=== PATIENT | female | born 1990 | race Caucasian/White ===

== ENCOUNTER 2018-12-14 16:01 | Inpatient (IN) | payer OTHER ==
[~2018-12-14] VITALS: Ht 165.1 cm; Wt 65.8 kg
[2018-12-14] MEDS ORDERED: PREN1TAB80 PO (16:26)
[2018-12-14 16:41] VITALS: BP 120/73
[2018-12-14] MEDS: RINGERS SOLUTION,LACTATED 1,000 ML IV SCH ×2 (18:00→21:13)
[2018-12-14] MEDS ORDERED: OXYTOCIN 30 UNITS/LACT RINGERS 500 ML IV PRN (19:06)
[2018-12-14] MEDS ORDERED: RINGERS SOLUTION,LACTATED 1,000 ML IV ONE (19:06)
[2018-12-14] MEDS ORDERED: OXYTOCIN 30 UNITS/LACT RINGERS 500 ML IV ONE (19:06)
[2018-12-14] MEDS ORDERED: RINGERS SOLUTION,LACTATED 1,000 ML IV SCH (19:06)
[2018-12-14] MEDS ORDERED: METHYLERGONOVINE MALEATE 0.2 MG/ML VIAL IM PRN (19:15)
[2018-12-14] MEDS ORDERED: CITRIC ACID/SODIUM CITRATE 30 ML SOLUTION UDCUP PO PRN (19:15)
[2018-12-14] MEDS ORDERED: METOCLOPRAMIDE HCL 5 MG/ML 2 ML VIAL IVP PRN (19:15)
[2018-12-14] MEDS ORDERED: LIDOCAINE/PF 1% 30 ML VIAL INJ PRN (19:15)
[2018-12-14] MEDS ORDERED: AMPICILLIN SODIUM 2 GM/NS 100 ML IV ONE (19:15)
[2018-12-14 20:04] LABS: BASOPHILS % (AUTO) 0.8 % (0.0-2.0); EOSINOPHILS % (AUTO) 1.6 % (1.0-6.0); HEMATOCRIT 34.9 % (36-46); HEMOGLOBIN 11.9 g/dL (12.0-16.0); LYMPHOCYTES # (AUTO) 1.7 K/uL (1.0-4.8); LYMPHOCYTES % (AUTO) 19.1 % (22.0-44.0); MEAN CORPUSCULAR HEMOGLOBIN 32.4 pg (26.0-34.0); MEAN CORPUSCULAR HGB CONC 34.1 G/dL (31.0-37.0); MEAN CORPUSCULAR VOLUME 95 fL (80-100); MONOCYTES # (AUTO) 0.7 K/uL (0.1-1.0); MONOCYTES % (AUTO) 7.3 % (2.0-9.0); NEUTROPHILS # (AUTO) 6.5 K/uL (1.8-7.7); NEUTROPHILS % (AUTO) 71.2 % (40.0-70.0); PLATELET COUNT (AUTO)-OB 223 K/uL (150-450); RED BLOOD CELL COUNT(AUTO) 3.66 MIL/uL (4.00-5.20); RED CELL DISTRIBUTION WIDTH 19.3 % (11.5-14.5)
[2018-12-14] MEDS: RINGERS SOLUTION,LACTATED 1,000 ML IV PRN (20:06)
[2018-12-14 21:55] LABS: RUBELLA SCREEN (IGG) IMMUNE (IMMUNE)
[2018-12-15] MEDS ORDERED: ROPIVACAINE HCL/PF 0.2% 100 ML ED PRN (00:03)
[2018-12-15] MEDS ORDERED: ONDANSETRON HCL 4 MG/2 ML VIAL IVP PRN (00:15)
[2018-12-15] MEDS ORDERED: DiphenhydrAMINE HCL 50 MG/ML VIAL IVP PRN (00:15)
[2018-12-15] MEDS ORDERED: NALBUPHINE HCL 10 MG/ML VIAL IVP PRN (00:15)
[2018-12-15] MEDS: RINGERS SOLUTION,LACTATED 1,000 ML IV PRN (00:18)
[2018-12-15] MEDS: RINGERS SOLUTION,LACTATED 1,000 ML IV SCH (00:50)
[2018-12-15] MEDS: AMPICILLIN SODIUM 1 GM/NS 50 ML IV SCH ×2 (00:51→05:07)
[2018-12-15] MEDS ORDERED: OXYTOCIN 30 UNITS/LACT RINGERS 500 ML IV ONE (08:05)
[2018-12-15] MEDS ORDERED: OxyCODONE HCL/ACETAMINOPHEN 5-325 MG TABLET PO PRN ×2 (08:15)
[2018-12-15] MEDS ORDERED: LANOLIN 7 GM OINTMENT TP PRN (08:15)
[2018-12-15] MEDS ORDERED: MAGNESIUM HYDROXIDE SUSPENSION 30 ML UDCUP PO PRN (08:15)
[2018-12-15] MEDS ORDERED: BENZOCAINE 20%/MENTHOL 56 GM SPRAY CANISTER TP PRN (08:15)
[2018-12-15] MEDS ORDERED: LIDOCAINE/PF 1% 30 ML VIAL INJ PRN (08:15)
[2018-12-15] MEDS ORDERED: GLYCERIN/WITCH HAZEL LEAF 40 PADS JAR TP PRN (08:15)
[2018-12-15] MEDS: IBUPROFEN 800 MG TABLET PO PRN ×2 (09:19→20:59)
[2018-12-16] MEDS: IBUPROFEN 800 MG TABLET PO PRN (06:29)
[2018-12-16 07:14] LABS: BASOPHILS % (AUTO) 0.4 % (0.0-2.0); EOSINOPHILS % (AUTO) 2.1 % (1.0-6.0); HEMATOCRIT 29.4 % (36-46); HEMOGLOBIN 10.7 g/dL (12.0-16.0); LYMPHOCYTES % (AUTO) 23.7 % (22.0-44.0); MEAN CORPUSCULAR HEMOGLOBIN 34.5 pg (26.0-34.0); MEAN CORPUSCULAR HGB CONC 36.4 G/dL (31.0-37.0); MEAN CORPUSCULAR VOLUME 95 fL (80-100); MONOCYTES # (AUTO) 0.6 K/uL (0.1-1.0); MONOCYTES % (AUTO) 7.8 % (2.0-9.0); NEUTROPHILS # (AUTO) 5.5 K/uL (1.8-7.7); PLATELET COUNT (AUTO)-OB 132 K/uL (150-450); RED CELL DISTRIBUTION WIDTH 19.3 % (11.5-14.5)
[2018-12-16] MEDS ORDERED: IBUP-2071 PO (09:09)
[2018-12-16] MEDS ORDERED: DSS100 PO (09:09)
== END 2018-12-16 10:50 | disposition home or self-care (01) | DRG 807 ==
LOC: OBSVTOIN 16:04 → 4S 16:04
PROVIDERS: ADMIT Obstetrics & Gynecology; ATTEND Obstetrics & Gynecology
PROC: 10E0XZZ Delivery of Products of Conception, External Approach (ICD-10-PCS; principal; 2018-12-15)
PROC: 0HQ9XZZ Repair Perineum Skin, External Approach (ICD-10-PCS; 2018-12-15)
PROC: 3E0R3BZ Introduction of Anesthetic Agent into Spinal Canal, Percutaneous Approach (ICD-10-PCS; 2018-12-15)
PROC: 00HU33Z Insertion of Infusion Device into Spinal Canal, Percutaneous Approach (ICD-10-PCS; 2018-12-15)
DX: O69.81X0 Labor and delivery complicated by cord around neck, without compression, not applicable or unspecified (principal); Z37.0 Single live birth; O70.0 First degree perineal laceration during delivery; Z3A.41 41 weeks gestation of pregnancy
CPT/HCPCS: 76811; 80307; 86592; 86762; 86850; 86900; 86901; 87340; 89060; J0290; J2405; J2590; J7120